=== PATIENT | male | born 1970 | race Caucasian/White ===

== ENCOUNTER 2016-06-24 19:25 | Emergency (ER) | payer OTHER ==
[2016-06-24 19:45] VITALS: BP 124/81; PULSE 76; TEMP 98.3; BMI 41.5
--- NOTE | 2016-06-24 19:49 | PDOC ---
History of Present Illness - General Chief Complaint: Head/Neck problem Stated Complaint: INJURY -YFD Time Seen by Provider: 06/24/16 19:48 History Source: Patient Exam Limitations: No Limitations - History of Present Illness Timing/Duration: reports: 4-6 hours Severity: Yes: mild Associated Symptoms: reports: muscle spasms. denies: fever/chills, nausea/ vomiting, slurred speech, vision changes Past History - Travel Traveled outside of the country in the last 30 days: No Close contact w/someone who was outside of country & ill: No - Past Medical History Allergies/Adverse Reactions: Allergies Allergy/AdvReac Type Severity Reaction Status Date / Time No Known Allergies Allergy Verified 06/24/16 19:42 Home Medications: Ambulatory Orders Metoprolol Succinate [Toprol XL -] 25 mg PO DAILY 11/09/13 Cardiac Disorders: Yes (Pericarditis 10 years ago, tachycardia, A Fib 10 years ago) Psychiatric Problems: Yes (anxiety in the past) - Family Disease History Family Disease History: CA: Mother (breast ), Other: Father (hip replacement), Brother (no medical issues ), Sister (no medical issues ) - Immunization History Td Vaccination: Yes TDAP Vaccination: Yes Immunization Up to Date: No - Psycho/Social/Smoking Cessation Hx Anxiety: No Suicidal Ideation: No Smoking Status: Yes Smoking History: Current some day smoker Have you smoked in the past 12 months: Yes Number of Cigarettes Smoked Daily: 0 Cigars Per Day: 1 Information on smoking cessation initiated: No 'Breaking Loose' booklet given: 10/12/15 Hx Alcohol Use: No Drug/Substance Use Hx: No Neuro Specific PMHX - Complaint Specific PMHX Glaucoma: No Herniated Disk: No Laminectomy: No Migraine: No Review of Systems - Review of Systems Able to Perform ROS?: Yes Comments:: 06/24/16 20:30 CONSTITUTIONAL: Absent: fever, chills, diaphoresis, generalized weakness, malaise, loss of appetite HEENT: Absent: rhinorrhea, nasal congestion, throat pain, throat swelling, difficulty swallowing, mouth swelling, ear pain, eye pain, visual Changes CARDIOVASCULAR: Absent: chest pain, loss of consciousness, palpitations, irregular heart rate, peripheral edema RESPIRATORY: Absent: cough, shortness of breath, dyspnea with exertion, orthopnea, wheezing, stridor, hemoptysis GASTROINTESTINAL: Absent: abdominal pain, abdominal distension, nausea, vomiting, diarrhea, constipation, melena, hematochezia GENITOURINARY: Absent: dysuria, frequency, urgency, hesitancy, hematuria, flank pain, genital pain MUSCULOSKELETAL: Left lat neck pain (mid section) Absent: myalgia, arthralgia, joint swelling SKIN: Absent: rash, itching, pallor HEMATOLOGIC/IMMUNOLOGIC: Absent: easy bleeding, easy bruising, lymphadenopathy, frequent infections ENDOCRINE: Absent: unexplained weight gain, unexplained weight loss, heat intolerance, cold intolerance NEUROLOGIC: Absent: headache, focal weakness or paresthesias, dizziness, unsteady gait, seizure, mental status changes, bladder or bowel incontinence PSYCHIATRIC: Absent: anxiety, depression, suicidal or homicidal ideation, hallucinations. Is the patient limited [place] proficient: No *Physical Exam - Vital Signs Last Vital Signs Temp Pulse Resp BP Pulse Ox 98.3 F 76 16 124/81 98 06/24/16 19:42 06/24/16 19:42 06/24/16 19:42 06/24/16 19:42 06/24/16 19:42 - Physical Exam Comments: 06/24/16 20:30 GENERAL: Well developed, well nourished. Awake and alert. No acute distress. HEENT: Normocephalic, atraumatic. PERRLA, EOMI. No conjunctival pallor. Sclera are non- icteric. Moist mucous membranes. Oropharynx is clear. NECK: Supple. Full ROM. No JVD. Carotid pulses 2+ and symmetric, without bruits. No thyromegaly. No lymphadenopathy. CARDIOVASCULAR: Regular rate and rhythm. No murmurs, rubs, or gallops. Distal pulses are 2+ and symmetric. PULMONARY: No evidence of respiratory distress. Lungs clear to auscultation bilaterally. No wheezing, rales or rhonchi. ABDOMINAL: Soft. Non-tender. Non-distended. No rebound or guarding. No organomegaly. Normoactive bowel sounds. MUSCULOSKELETAL Normal range of motion at all joints. No bony deformities or tenderness. No CVA tenderness. EXTREMITIES: No cyanosis. No clubbing. No edema. No calf tenderness. SKIN: Warm and dry. Normal capillary refill. No rashes. No jaundice. NEUROLOGICAL: Alert, awake, appropriate. Cranial nerves 2-12 intact. No deficits to light touch and temperature in face, upper extremities and lower extremities. No motor deficits in the in face, upper extremities and lower extremities. Normoreflexic in the upper and lower extremities. Normal speech. Toes are down- going bilaterally. Gait is normal without ataxia. PSYCHIATRIC: Cooperative. Good eye contact. Appropriate mood and affect. C spine: neg pain on palp to midline F.R.O.M. (noticed while walking into room, pt was able to place his chin to his chest/ lat turns and hyperextend Ext neg numbness/ 2 point discriminatio in tact BUE: F.R.O.M> Strength 10/03 ED Treatment Course - RADIOLOGY Radiograph Interpretation: 06/24/16 20:33 Cspine xray neg but unable to clear all 7 vertebrae pt refuses ctscan// signed ama Progress Note - Progress Note Progress Note: 46-year-old male presents to the emergency department complaining of left sided neck pain. 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 He states while grabbing the jaws of life, he felt a pop to his neck. He denies any extremity numbness or tingling sensation. Patient has a history of disc herniation to C5-C6. He denies any headache, dizziness, lightheadedness, back pain, chest pain, shortness of breath. Patient says he feels a slight twinge to his neck but otherwise feels fine. Patient was informed after the x-ray of his neck, I am unable to clear his C- spine because I am unable to visualize C6-C7. Patient was informed that he needs a CAT scan of his C-spine but refuses and wishes to sign an AMA form. Patient says he will go home and follow with his PMD/Workmen's Comp. physician this week. He was strongly advised to return back to the emergency department for any extremity numbness or tingling sensation, headaches, dizziness, lightheadedness, severe neck pain or any concerns. Patient agrees with plan. *DC/Admit/Observation/Transfer Diagnosis at time of Disposition: Acute neck sprain Qualifiers: Encounter type: initial encounter Qualified Code(s): S13.9XXA - Sprain of joints and ligaments of unspecified parts of neck, initial encounter - Discharge Dispostion Disposition: AGAINST MEDICAL ADVICE Condition at time of disposition: Guarded - Referrals Referrals: Cesar Isaacs MD [Staff Physician] - - Patient Instructions Printed Discharge Instructions: DI for Neck Sprain Additional Instructions: Please return back to the emergency department for any severe/worsening pain or discomfort, extremity numbness or tingling sensation. You informed that the x-ray of your neck did not give us a good visualization of the entire vertebrae. You offered a CAT scan of your neck but you wished to sign AGAINST MEDICAL ADVICE. Your strongly advised to return back for any complaints. Otherwise, follow-up with your physician or the neurosurgeon listed on your discharge.
== END 2016-06-24 20:59 | disposition left against medical advice (07) ==
LOC: JERFT 19:25
DX: S13.9XXA Sprain of joints and ligaments of unspecified parts of neck, initial encounter (principal); X58.XXXA Exposure to other specified factors, initial encounter; Y93.89 Activity, other specified; Y92.410 Unspecified street and highway as the place of occurrence of the external cause; Y99.0 Civilian activity done for income or pay; I48.91 Unspecified atrial fibrillation; R00.0 Tachycardia, unspecified; F41.9 Anxiety disorder, unspecified; F17.210 Nicotine dependence, cigarettes, uncomplicated
CPT/HCPCS: 72050-TC; 99281-25

== ENCOUNTER 2017-02-03 10:00 | Inpatient (IN) | payer OTHER ==
[2017-03-09 15:01] VITALS: BMI 39.5
[2017-03-11] MEDS ORDERED: THROMBIN (BOVINE) 5,000 UNIT VIAL TP ONE (07:11)
[2017-03-11] MEDS ORDERED: GENTAMICIN SO4 80 MG/2 ML VIAL ONE (07:14)
[2017-03-11] MEDS ORDERED: LIDOCAINE HCL/PF 2% SDV 5ML VIAL ONE (07:50)
[2017-03-11] MEDS ORDERED: PROPOFOL 20 ML ONE ×5 (07:50→09:04)
[2017-03-11] MEDS ORDERED: ONDANSETRON 4 MG/2 ML VIAL ONE (07:50)
[2017-03-11] MEDS ORDERED: ROCURONIUM BROMIDE 50 MG/5 ML VIAL ONE ×2 (07:50→08:39)
[2017-03-11] MEDS ORDERED: DEXAMETHASONE SOD PHOSPHATE 4 MG/1 ML VIAL ONE (07:50)
[2017-03-11] MEDS ORDERED: MIDAZOLAM HCL 2 MG/2 ML SINGLE DOSE VIAL ONE ×2 (07:50)
--- NOTE | 2017-03-11 08:11 | HP ---
Admitting History and Physical - Primary Care Physician PCP: Pepe Henao (Neurosurgeon) - Admission Chief Complaint: Neck pain with radiation down left arm. History of Present Illness: 47 year old male w/ PMHx as noted below. 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 Patient states he attempted floor care specialist, accupuncture and physical therapy. All treatment modalities failed to improve his quality of life. Patient went for MRI which confirmed herniated disc at C5/6. Patient states since June, he's having continued neck pain with radiation down his left arm. Associated numbness/tingling/weakness in his left hand (right hand dominant ). Admits having difficulty grasping objects. Here today for elective repair of his herniated disc at level C5/6. Risks, benefits, alternatives discussed with patient by Dr. Henao and wishes to proceed with surgery. History Source: Patient Limitations to Obtaining History: No Limitations - Past Medical History Cardiovascular: Yes: AFIB (1 time episode), Other (Pericarditis) Pulmonary: No: Asthma, Bronchitis, Cancer, COPD, O2 Dependent, Pneumonia, Previously Intubated, Pulmonary Embolus, Pulmonary Fibrosis, Sleep Apnea, Other Gastrointestinal: No: Ascites, Cancer, Constipation, Crohn's Disease, Diverticulitis, Diverticulosis, Esophageal Varices, Gastritis, GERD, GI Bleed, Hemorrhoids, Hiatal Hernia, Inflamatory Bowel Disease, Irritable Bowel Disease, Pancreatitis, Peptic Ulcer Disease, Ulcerative Colitis, Other Hepatobiliary: No: Cirrhosis, Cholelithiasis, Cholecystitis, Choledocholithiasis , Hepatitis A, Hepatitis B, Hepatitis C, Other Renal/: No: Renal Failure, Renal Inusuff, BPH, Cancer, Hematuria, Hemodialysis , Neurogenic Bladder, Renal Calculi, UTI, Other Psych: Yes: Anxiety Musculoskeletal: Yes: Other (see HPI) Endocrine: No: Keller's Disease, Keo's Disease, Diabetes Insipidus, Diabetes Mellitus, Hyperparathyroidism, Hyperthyroidism, Hypothyroidism, Osteopenia, SIADH, Other - Past Surgical History Past Surgical History: Yes: Arthrosocopy (Right knee (Dr. Joseph)) - Smoking History Smoking history: Current some day smoker (Cigars) Have you smoked in the past 12 months: Yes Aproximately how many cigarettes per day: 0 - Alcohol/Substance Use Hx Alcohol Use: Yes (SOCIAL) - Social History ADL: Independent Occupation: [employer] History of Recent Travel: No Home Medications - Allergies Allergies/Adverse Reactions: Allergies Allergy/AdvReac Type Severity Reaction Status Date / Time No Known Allergies Allergy Verified 03/11/17 06:44 - Home Medications Home Medications: Ambulatory Orders Cyclobenzaprine HCl [Flexeril 10 mg] 10 mg PO PRN PRN 03/09/17 Ubidecarenone/[place]-3/Vit E [Co Q-10-Vit E-Fish Oil Sfgl] 1 each PO DAILY Family Disease History - Family Disease History Family History: Unremarkable Review of Systems - Review of Systems Constitutional: reports: No Symptoms Eyes: reports: No Symptoms HENT: reports: No Symptoms Neck: reports: Decreased ROM, Pain on Movement Cardiovascular: reports: No Symptoms Respiratory: reports: No Symptoms Gastrointestinal: reports: No Symptoms Genitourinary: reports: No Symptoms Musculoskeletal: reports: No Symptoms Integumentary: reports: No Symptoms Neurological: reports: No Symptoms Endocrine: reports: No Symptoms Hematology/Lymphatic: reports: No Symptoms Psychiatric: reports: Anxiety Physical Examination Vital Signs: Vital Signs Temperature 98.3 F 03/11/17 06:40 Pulse Rate 100 H 03/11/17 06:40 Respiratory Rate 20 03/11/17 06:40 Blood Pressure 145/92 03/11/17 06:40 O2 Sat by Pulse Oximetry (%) 99 03/11/17 06:38 Constitutional: Yes: Well Nourished, No Distress, Calm, Obese Eyes: Yes: WNL, Conjunctiva Clear, EOM Intact HENT: Yes: WNL, Atraumatic, Normocephalic Neck: Yes: Decreased ROM, Tenderness Cardiovascular: Yes: WNL, Regular Rate and Rhythm Respiratory: Yes: WNL, Regular, CTA Bilaterally Gastrointestinal: Yes: WNL, Normal Bowel Sounds, Soft, Abdomen, Obese Musculoskeletal: Yes: WNL Extremities: Yes: WNL Edema: No Peripheral Pulses WNL: Yes Neurological: Yes: WNL, Alert, Oriented ...Motor Strength: LUE (numbness and tingling sensation to left hand. left hand grasp strength 4/5) Psychiatric: Yes: WNL, Alert, Oriented Imaging - Results MRI: Report Reviewed, Image Reviewed Problem List - Problems (1) Cervical myelopathy with cervical radiculopathy Assessment/Plan: OR today for cervical laminectomy C5/6, corpectomies with orthodoxy of lordosis and reconstruction with peek cage and anterior plating. Informed consent signed and in chart. Code(s): M47.12 - OTHER SPONDYLOSIS WITH MYELOPATHY, CERVICAL REGION
[2017-03-11] MEDS ORDERED: ceFAZolin SODIUM 1 GM VIAL ONE (08:25)
[2017-03-11] MEDS ORDERED: ceFAZolin SODIUM 1 GM VIAL IVPB ONE (08:28)
[2017-03-11] MEDS ORDERED: HYDROmorphone HCL/PF 1 MG/ML VIAL (FOR PYXIS CHARGING ONLY) ONE ×2 (08:44→09:15)
[2017-03-11] MEDS ORDERED: VECURONIUM BROMIDE 10 MG VIAL ONE (09:01)
[2017-03-11] MEDS ORDERED: LIDOCAINE 1%/EPI 1:100000 (50 ML MULTI DOSE VIAL) INF ONE (09:06)
[2017-03-11] MEDS ORDERED: ONDANSETRON 4 MG/2 ML VIAL IVPUSH PRN (09:19)
[2017-03-11] MEDS ORDERED: HYDROmorphone HCL CARPU-JECT 2 MG/1 ML DISP.SYRIN IVPUSH PRN (09:19)
[2017-03-11] MEDS ORDERED: GLYCOPYRROLATE 0.2 MG/1 ML VIAL ONE (10:50)
[2017-03-11] MEDS ORDERED: NEOSTIGMINE METHYLSULFATE 0.5 MG/ML - 10 ML MDV ONE (10:50)
[2017-03-11] MEDS ORDERED: KETOROLAC TROMETHAMINE 30 MG/1 ML VIAL IVPUSH PRN (11:13)
[2017-03-11] MEDS ORDERED: ONDANSETRON 4 MG/2 ML VIAL IVPB PRN (11:13)
[2017-03-11] MEDS ORDERED: oxyCODONE HCL 5 MG TABLET PO PRN ×2 (11:13)
[2017-03-11] MEDS ORDERED: morphine CARPU-JECT 4 MG/1 ML DISP.SYRIN IVPUSH PRN (11:13)
[2017-03-11] MEDS ORDERED: LACTATED RINGERS SOLUTION 1,000 ML IV SCH (11:15)
[2017-03-11] MEDS ORDERED: CYCLOBENZAPRINE HCL 10 MG TABLET (FP) PO PRN (11:16)
--- NOTE | 2017-03-11 11:23 | OP ---
Operative Note - Note: Operative Date: 03/11/17 Pre-Operative Diagnosis: Cervical myelopathy with radiculopathy Operation: Cervical 5&6 corpectomny, religious of lordosis and reconstruction with Peak Cage and anterior plating Post-Operative Diagnosis: Same as Pre-op Surgeon: Pepe Henao Oyster Buyer: Pablo Stoner Anesthesiologist/KENO WRITER/RUNNER: Katie Tiwari Anesthesia: General Estimated Blood Loss (mls): 250 Fluid Volume Replaced (mls): 1,000 Operative Report Dictated: Yes
--- NOTE | 2017-03-11 11:24 | SURG ---
Surgery Instructor Technical Training Note Instructor Technical Training: Pablo Stoner PA-C Date of Service: 03/11/17 Diagnosis: Cervical myelopathy with radiculopathy Procedure: Cervical 5&6 corpectomy, pentecostal of lordosis and reconstruction with Peak Cage and anterior plating I was present for the entirety of the operative procedure. For further detail, please refer to operative report. Visit type - Case Type Case Type: Scheduled Admission - New patient This patient is new to me today: Yes Date on this admission: 03/11/17
[2017-03-11] MEDS: ACETAMINOPHEN 1000 MG/100 ML VIAL (NON FORMULARY) IVPB ONE ×2 (12:40→14:24)
[2017-03-11] MEDS: morphine CARPU-JECT 2 MG/1 ML DISP.SYRIN IVPUSH PRN ×2 (15:23→20:34)
[2017-03-11] MEDS: LACTATED RINGERS SOLUTION 1,000 ML IV SCH (15:46)
[2017-03-11] MEDS: CEFAZOLIN 1 GM/D5W 50 ML IVPB SCH (17:43)
[2017-03-11] MEDS ORDERED: PT OWN MED DRAWER 7, Y5N ONE (21:46)
[2017-03-12] MEDS: CEFAZOLIN 1 GM/D5W 50 ML IVPB SCH (01:15)
[2017-03-12] MEDS: LACTATED RINGERS SOLUTION 1,000 ML IV SCH ×2 (01:15→12:45)
[2017-03-12] MEDS: morphine CARPU-JECT 2 MG/1 ML DISP.SYRIN IVPUSH PRN ×2 (02:31→10:15)
[2017-03-12] MEDS ORDERED: PT OWN MED DRAWER 7, Y5N ONE ×2 (06:49→10:15)
[2017-03-12] MEDS ORDERED: INSULIN (NOVOLOG) ASPART 100 UNITS/ML 10ML VIAL ONE (07:18)
[2017-03-12] MEDS ORDERED: BENZOCAINE/MENTH/CETYLPYRD CL 1 EACH LOZENGE MM PRN (10:17)
--- NOTE | 2017-03-12 10:21 | PN ---
Progress Note, Physician Chief Complaint: s/p anterior cervical decompresion fusion under general anesthesia History of Present Illness: post op day one - Current Medication List Current Medications: Active Medications Cyclobenzaprine HCl (Flexeril -) 10 mg PO PRN PRN PRN Reason: PAIN Hydromorphone HCl (Dilaudid Injection -) 2 mg IVPUSH [id number] PRN PRN Reason: PAIN Stop: 03/14/17 09:20 Lactated Ringer's (Lactated Ringers Solution) 1,000 mls @ 125 mls/hr IV ASDIR STEVE Last Admin: 03/12/17 01:15 Dose: 125 mls/hr Ketorolac Tromethamine (Toradol Injection -) 30 mg IVPUSH Q6H PRN PRN Reason: PAIN Stop: 03/16/17 11:12 Last Admin: 03/11/17 12:30 Dose: 30 mg Morphine Sulfate (Morphine Injection -) 4 mg IVPUSH Q4H PRN PRN Reason: PAIN Last Admin: 03/12/17 02:31 Dose: 4 mg Non-Formulary Medication (Ubidecarenone/[place]-3/Vit E [Co Q-10-Vit E-Fish Oil Sfgl]) 1 each PO DAILY STEVE Ondansetron HCl (Zofran Injection) 4 mg IVPB Q6H PRN PRN Reason: NAUSEA AND/OR VOMITING Last Admin: 03/11/17 15:46 Dose: 4 mg Oxycodone HCl (Roxicodone -) 10 mg PO Q4H PRN PRN Reason: PAIN Last Admin: 03/12/17 07:12 Dose: 10 mg Oxycodone HCl (Roxicodone -) 5 mg PO Q4H PRN PRN Reason: PAIN - Objective Vital Signs: Vital Signs Temperature 98.6 F 03/12/17 06:00 Pulse Rate 106 H 03/12/17 06:00 Respiratory Rate 20 03/12/17 06:00 Blood Pressure 147/93 03/12/17 06:00 O2 Sat by Pulse Oximetry (%) 96 03/11/17 18:03 Constitutional: Yes: Well Nourished Cardiovascular: Yes: WNL Respiratory: Yes: WNL Gastrointestinal: Yes: WNL Assessment/Plan Patient complained of sore throat, pain helped by oral analgesics, no nausea or vomiting. Will order cepacol for throat, continue oral analgesics. Complained of anxiety, used to take xanax at home. Would recommend adding benzodiazapine for anxiety which may also act as adjunct to pain regimen. Dept of anesthesia will sign off at this time, feel free to reconsult if pain is not controlled.
--- NOTE | 2017-03-12 17:20 | PN ---
Progress Note (short form) - Note Progress Note: 47yo male POD #1 ACDF seen and examined at bedside. Pt states the b/l UE paresthesias in hands has improved. He c/o painful swallowing and mild pain and stiffness over pain and shoulders. He also c/o some anxiety last night but it has mostly resolved. He denies any fever, chills, c/p, SOB, N/V/D. Patient states he is tolerating a soft diet. He denies any new or worsening UE pain. A&O x 3 NAD Unlabored resp on RA Incision dressing c/d/i with no evidence of d/c, surrounding tissue without tracking erythema and intact Drain removed with 25cc serosanigious d/c, no active bleeding at site. Steri strips, 4x4 and tegaderm applied. B/L UE 5/5 strength and sensation to light touch in tact throughout b/l LE compartments soft supple and non-tender. NVID with +2 pedal pulses. Right VENTURA [id number] serosanginous d/c Imp: POD #1 ACDF doing well with pre-op symptoms improving. Plan: 1) continue c- collar for 23 hours/day x 3 months post op. No pillow under head- avoid neck flexion. discussed with patient 2) Keep incision clean and dry. Ok to shower in three days- change dressing as needed= dressings provided 3) Daily IS 4) Pain control as prescribed 5) F/u with Dr. Henao as scheduled.
[2017-03-12 18:41] VITALS: BP 146/80; PULSE 94; TEMP 98.2
== END 2017-03-12 19:17 | disposition home or self-care (01) | DRG 321 ==
LOC: JSAMEDAYSX 03-11 05:07 → EDSTATUS 03-11 08:00 → J8W 03-11 14:10
PROVIDERS: ADMIT Neurological Surgery; ATTEND Neurological Surgery
PROC: 0RG20A0 Fusion of 2 or more Cervical Vertebral Joints with Interbody Fusion Device, Anterior Approach, Anterior Column, Open Approach (ICD-10-PCS; 2017-03-11)
PROC: 0PU307Z Supplement Cervical Vertebra with Autologous Tissue Substitute, Open Approach (ICD-10-PCS; 2017-03-11)
PROC: BR10ZZZ Fluoroscopy of Cervical Spine (ICD-10-PCS; 2017-03-11)
PROC: 0RG207J Fusion of 2 or more Cervical Vertebral Joints with Autologous Tissue Substitute, Posterior Approach, Anterior Column, Open Approach (ICD-10-PCS; principal; 2017-03-11 08:00)
DX: M47.12 Other spondylosis with myelopathy, cervical region (principal); I48.91 Unspecified atrial fibrillation; F17.210 Nicotine dependence, cigarettes, uncomplicated; F41.9 Anxiety disorder, unspecified; S13.1 Subluxation and dislocation of cervical vertebrae; S16.1XXD Strain of muscle, fascia and tendon at neck level, subsequent encounter; X50.0XXD Overexertion from strenuous movement or load, subsequent encounter; X50.9XXD Other and unspecified overexertion or strenuous movements or postures, subsequent encounter
CPT/HCPCS: 72125-TC; 76000-TC; 94760; 97116-GP; 97161-GP

== ENCOUNTER 2020-06-29 05:53 | Emergency (ER) | payer BC ==
[2020-06-29 06:15] VITALS: BMI 38.5
[2020-06-29 07:15] LABS: CHLORIDE 101 mmol/L (98-107); POTASSIUM 4.3 mmol/L (3.5-5.1); SODIUM 136 mmol/L (136-145)
[2020-06-29 07:17] LABS: ALBUMIN 4.2 g/dl (3.4-5.0); ANION GAP 6 MMOL/L (8-16); BLOOD UREA NITROGEN 15.2 mg/dL (7-18); CALCIUM 9.4 mg/dL (8.5-10.1); CO2 29 mmol/L (21-32)
[2020-06-29 07:18] LABS: GLUCOSE,RANDOM 90 mg/dL (74-106)
[2020-06-29 07:20] LABS: SGOT/AST 29 U/L (15-37); SGPT/ALT 42 U/L (13-61)
[2020-06-29 07:21] LABS: CREATININE 1.1 mg/dL (0.55-1.3)
[2020-06-29 07:22] LABS: BILIRUBIN,TOTAL 0.4 mg/dL (0.2-1); TOT PROT 7.5 g/dl (6.4-8.2)
[2020-06-29 07:23] LABS: ALK PHOS 54 U/L (45-117)
[2020-06-29 07:31] LABS: BASO % 0.8 % (0-2.0); EOS % 2.6 % (0-4.5); HEMATOCRIT 49.6 % (35.4-49); HEMOGLOBIN 17.3 GM/dL (11.7-16.9); LYMPH % 35.6 % (8-40); MCH 31.8 pg (25.7-33.7); MEAN PLT VOLUME 8.7 fl (7.5-11.1); MONO % 8.7 % (3.8-10.2); NEUT % 52.3 % (42.8-82.8); PLATELET COUNT 257 K/MM3 (134-434); RBC 5.44 M/mm3 (4.00-5.60); RDW 12.9 % (11.9-15.9); WHITE BLOOD COUNT 9.2 K/mm3 (4.0-10.0)
[2020-06-29 07:42] VITALS: BP 147/96; PULSE 88
[2020-06-29] MEDS ORDERED: SODIUM CHLORIDE 1,000 ML IV STA (08:21)
== END 2020-06-29 11:27 | disposition home or self-care (01) ==
LOC: JER 05:53
PROC: 3E0337Z Introduction of Electrolytic and Water Balance Substance into Peripheral Vein, Percutaneous Approach (ICD-10-PCS; principal; 2020-06-29)
DX: R00.2 Palpitations (principal)
CPT/HCPCS: 36415; 71045-TC-FY; 80053; 82550; 82553; 83735; 84439; 84443; 84484; 85025; 93005; 93010; 93306-TC; 99285-25

== ENCOUNTER 2020-10-18 21:05 | Emergency (ER) | payer BC ==
[2020-10-18 21:19] VITALS: BP 125/83; PULSE 89; TEMP 97.7; BMI 38.2
[2020-10-18 21:50] LABS: BASO % 2.1 % (0-2.0); HEMATOCRIT 43.5 % (35.4-49); HEMOGLOBIN 15.4 GM/dl (11.7-16.9); LYMPH % 29.5 % (8-40); MCH 32.5 pg (25.7-33.7); MCHC 35.4 g/dl (32.0-35.9); MEAN CELL VOLUME 91.9 fl (80-96); MEAN PLT VOLUME 8.6 fl (7.5-11.1); NEUT % 58.4 % (42.8-82.8); PLATELET COUNT 251 K/MM3 (134-434); RBC 4.74 M/mm3 (4.00-5.60); RDW 11.6 % (11.9-15.9); WHITE BLOOD COUNT 9.5 K/mm3 (4.0-10.8)
== END 2020-10-18 21:59 | disposition home or self-care (01) ==
LOC: FER 21:05
DX: R79.9 Abnormal finding of blood chemistry, unspecified (principal)
CPT/HCPCS: 36415; 85025; 99283-25

== ENCOUNTER 2022-08-29 23:59 | Emergency (ER) | payer BC, OTHER ==
[2022-08-30 00:06] VITALS: TEMP 98.1; BMI 34.9
[2022-08-30] MEDS ORDERED: ALPRAZolam 1 MG TABLET PO ONE (00:28)
[2022-08-30] MEDS ORDERED: ALPRAZolam 0.25 MG TABLET ONE (00:36)
[2022-08-30] MEDS ORDERED: dilTIAZem HCL 50 MG/10 ML - 10 ML VIAL IVPUSH ONE (00:39)
[2022-08-30] MEDS ORDERED: SODIUM CHLORIDE 0.9% 500 ML INFUS.BAG IV ONE (00:39)
[2022-08-30 00:41] LABS: BASO % 0.9 % (0-2.0); EOS % 2.9 % (0-4.5); HEMOGLOBIN 16.9 GM/dL (11.7-16.9); MCH 31.7 pg (25.7-33.7); MCHC 35.1 g/dl (32.0-35.9); MEAN CELL VOLUME 90.2 fl (80-96); MEAN PLT VOLUME 8.2 fl (7.5-11.1); MONO % 10.4 % (3.8-10.2); NEUT % 39.8 % (42.8-82.8); PLATELET COUNT 232 10^3/uL (134-434); RBC 5.32 M/mm3 (4.00-5.60); RDW 12.2 % (11.9-15.9); WHITE BLOOD COUNT 8.8 K/mm3 (4.0-10.0)
[2022-08-30] MEDS ORDERED: ACETAMINOPHEN 1000 MG/100 ML BAG IVPB ONE (00:43)
[2022-08-30] MEDS ORDERED: ACETAMINOPHEN INJECTION 100 ML IVPB ONE (00:48)
[2022-08-30] MEDS ORDERED: dilTIAZem HCL 125 MG/25 ML - 25 ML VIAL ONE (00:49)
[2022-08-30 00:52] LABS: INR 1.01 (0.83-1.09); PROTHROMBIN TIME (PATIENT) 11.7 SEC (9.7-13.0)
[2022-08-30 00:54] LABS: ACTIVATED PTT 35.4 SECONDS (25.2-36.5)
[2022-08-30 01:02] LABS: CALCIUM 9.4 mg/dL (8.5-10.1)
[2022-08-30 01:03] LABS: BLOOD UREA NITROGEN 19.2 mg/dL (7-18)
[2022-08-30 01:08] LABS: BILIRUBIN,TOTAL 0.2 mg/dL (0.2-1); TOT PROT 7.3 g/dl (6.4-8.2)
[2022-08-30 01:54] LABS: PH,URINE 7.5 (5.0-8.0); URINE APPEARANCE CLEAR; URINE BILIRUBIN NEGATIVE (NEGATIVE); URINE COLOR YELLOW; URINE GLUCOSE (UA) NEGATIVE (NEGATIVE); URINE KETONE NEGATIVE (NEGATIVE); URINE LEUK ESTERASE NEGATIVE (NEGATIVE); URINE NITRITE NEGATIVE (NEGATIVE); URINE PROTEIN NEGATIVE (NEGATIVE); URINE UROBILINOGEN 0.2 mg/dL (0.2-1.0)
[2022-08-30] MEDS ORDERED: dilTIAZem HCL 60 MG TABLET PO ONE (01:56)
[2022-08-30] MEDS ORDERED: ASPIRIN COATED 81 MG TABLET.EC PO ONE (01:57)
[2022-08-30] MEDS ORDERED: ASPIRIN COATED 81 MG TABLET.EC ONE (02:16)
[2022-08-30] MEDS ORDERED: dilTIAZem HCL 60 MG TABLET ONE (02:16)
[2022-08-30 03:09] VITALS: BP 120/80; PULSE 72; RESP 16
== END 2022-08-30 03:22 | disposition home or self-care (01) ==
LOC: JER 23:59
PROC: 3E0333Z Introduction of Anti-inflammatory into Peripheral Vein, Percutaneous Approach (ICD-10-PCS; principal; 2022-08-29)
PROC: 3E033GC Introduction of Other Therapeutic Substance into Peripheral Vein, Percutaneous Approach (ICD-10-PCS; 2022-08-29)
DX: I48.91 Unspecified atrial fibrillation (principal); R41.9 Unspecified symptoms and signs involving cognitive functions and awareness; R00.2 Palpitations
CPT/HCPCS: 0241U-QW; 36415; 71045-TC-FY; 80053; 81003; 84443; 84484; 85025; 85379; 85610; 85730; 87086; 93005; 93010; 99285-25